=== PATIENT | female | born 1985 | race Caucasian/White ===

== ENCOUNTER 2017-03-08 01:26 | Emergency (ER) | payer OTHER ==
[2017-03-08 01:50] VITALS: BP 102/66
--- NOTE | 2017-03-08 02:30 | EDM.PDOC ---
ED HPI GENERAL MEDICAL PROBLEM - General Chief Complaint: Lower Extremity Injury/Pain Stated Complaint: STABBED IN THE LEG WITH A DART [id number] Time Seen by Provider: 03/08/17 01:50 Source of Information: Reports: Patient History Limitations: Reports: No Limitations - History of Present Illness INITIAL COMMENTS - FREE TEXT/NARRATIVE: c/o pain to right ankle. Playing dart game with beer cans on ground and dart end struck right foot, now increased pain and hurts to put weight on foot. Onset: Today Duration: Hour(s): Location: Reports: Lower Extremity, Right Right Ankle Pain Score (Numeric/FACES): 8 - Related Data Allergies Allergy/AdvReac Type Severity Reaction Status Date / Time No Known Allergies Allergy Verified 03/08/17 01:50 Home Meds: Home Meds Levothyroxine [Synthroid] 100 mcg PO ACBREAKFAST 03/08/17 [History] SUMAtriptan [Imitrex] 25 mg PO Q2H PRN 03/08/17 [History] traZODone HCl [Trazodone HCl] 50 mg PO DAILY 03/08/17 [History] Past Medical History Musculoskeletal History: Reports: Fracture Endocrine/Metabolic History: Reports: Hypothyroidism - Past Surgical History HEENT Surgical History: Reports: Other (See Below) Other HEENT Surgeries/Procedures: rhinoplasty GI Surgical History: Reports: Appendectomy Social & Family History - Tobacco Use Smoking Status *Q: Never Smoker Second Hand Smoke Exposure: No - Recreational Drug Use Recreational Drug Use: No Review of Systems - Review of Systems Review Of Systems: ROS reveals no pertinent complaints other than HPI. ED EXAM, GENERAL - Physical Exam Exam: See Below Exam Limited By: No Limitations General Appearance: Alert, Mild Distress Nose: Normal Inspection Neck: Full Range of Motion Respiratory/Chest: No Respiratory Distress Cardiovascular: Normal Peripheral Pulses, Regular Rate, Rhythm Extremities: Normal Range of Motion (flesion internal rotation), Limited Range of Motion, Other (mils swelling laeral fore foot). No: Increased Warmth, Redness Neurological: Alert, Oriented Skin Exam: Warm, Dry, Intact, Wound/Incision (small dry punctate wound right lateral proximal dorasal forefoot. ). No: Pallor Course - Vital Signs Last Recorded V/S: Last Vital Signs Temp 98.8 F 03/08/17 01:46 Pulse 89 03/08/17 01:46 Resp 18 03/08/17 01:46 BP 102/66 03/08/17 01:46 Pulse Ox 100 03/08/17 01:46 - Orders/Labs/Meds Meds: Medications Discontinued Medications Generic Name Dose Route Start Last Admin Trade Name Jayson PRN Reason Stop Dose Admin Cephalexin 500 mg 03/08/17 02:42 03/08/17 02:46 Keflex PO 03/08/17 02:43 500 mg ONETIME ONE Administration Ibuprofen 600 mg 03/08/17 02:42 03/08/17 02:46 Motrin PO 03/08/17 02:43 600 mg ONETIME ONE Administration Departure - Departure Time of Disposition: 02:43 Disposition: Home, Self-Care 01 Condition: fair Clinical Impression: Puncture wound of foot Qualifiers: Encounter type: initial encounter Laterality: right Qualified Code(s): S91.331A - Puncture wound without foreign body, right foot, initial encounter Puncture wound of right foot Qualifiers: Encounter type: initial encounter Qualified Code(s): S91.331A - Puncture wound without foreign body, right foot, initial encounter - Discharge Information Instructions: Puncture Wound, [id number] Referrals: PCP,Not In Area [Primary Care Provider] - Forms: ED Department Discharge Additional Instructions: crutches, weight bearing as tolerated ibuprofen 600mg every 6 hours, buzz alternate with tylenol every 4 hours elevate extremity keflex 500mg 4 times daily for one week clinic recheck Thursday
[2017-03-08] MEDS ORDERED: Cephalexin 500 MG Cap PO ONE (02:42)
[2017-03-08] MEDS ORDERED: Ibuprofen 600 MG Tab PO ONE (02:42)
== END 2017-03-08 02:53 | disposition home or self-care (01) ==
LOC: DL.ED 01:26
DX: S91.331A Puncture wound without foreign body, right foot, initial encounter (principal); E03.9 Hypothyroidism, unspecified; W22.8XXA Striking against or struck by other objects, initial encounter; Z90.89 Acquired absence of other organs; Z79.899 Other long term (current) drug therapy
CPT/HCPCS: 73600; 99283; A9270